=== PATIENT | female | born 1970 | race Caucasian/White ===

== ENCOUNTER 2020-10-28 09:15 | Emergency (ER) | payer OTHER ==
[2020-10-28 09:35] VITALS: BP 113/63; PULSE 72
--- NOTE | 2020-10-28 09:53 | EDM.PDOC ---
ED HPI GENERAL MEDICAL PROBLEM - General Chief Complaint: Head Injury Stated Complaint: FELL AND HIT HEAD Time Seen by Provider: 10/28/20 09:35 Source of Information: Reports: Patient, Old Records, RN History Limitations: Reports: No Limitations - History of Present Illness INITIAL COMMENTS - FREE TEXT/NARRATIVE: 50 yo female not on warfarin fell abruptly on the ice on her way into work about 90 min ago and hit her R occipital area. She has a GORDON, a mildly stiff R post neck and some nausea without vomiting since. 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 No self tx so far. Onset: Today, Sudden Onset Date: 10/28/20 Onset Time: 08:20 Duration: Minutes: Location: Reports: Head Quality: Reports: Ache Severity: Mild Improves with: Reports: None Worsens with: Reports: None Context: Reports: Trauma Associated Symptoms: Reports: Headaches, Nausea/Vomiting (no vomiting) Treatments AUDIO VISUAL COORDINATOR: Reports: Other (see below) (none) Headache Pain Score (Numeric/FACES): 5 - Related Data Allergies Allergy/AdvReac Type Severity Reaction Status Date / Time Penicillins Allergy Rash Verified 10/28/20 09:24 sulfamethoxazole Allergy Mouth Sores Verified 10/28/20 09:24 [From Bactrim] trimethoprim [From Bactrim] Allergy Mouth Sores Verified 10/28/20 09:24 Home Meds: Home Meds Desloratadine/Pseudoephedrine [Clarinex-D 12 Hour] 1 tab PO DAILY 08/25/16 [History] Naproxen Sodium [Aleve] 2 tab PO DAILY 08/25/16 [History] buPROPion [Wellbutrin] 1 tab PO DAILY 08/25/16 [History] Levothyroxine 125 mcg PO ACBREAKFAST 10/28/20 [History] Lisinopril/Hydrochlorothiazide [Lisinopril-Hctz 20-25 mg Tab] 1 tab PO DAILY 10/28/20 [History] estradioL [Estradiol] 0.5 mg PO DAILY 10/28/20 [History] Past Medical History HEENT History: Reports: Allergic Rhinitis, Impaired Vision, Sinusitis Cardiovascular History: Reports: Hypertension Respiratory History: Reports: Asthma 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: Dysfunctional Uterine Bleeding, Polycystic Ovaries Psychiatric History: Reports: Anxiety Endocrine/Metabolic History: Reports: Hypothyroidism, Other (See Below) Other Endocrine/Metabolic History: Lupus Immunologic History: Reports: Other (See Below) Other Immunologic History: Lupus - Infectious Disease History Infectious Disease History: Reports: Chicken Pox - Past Surgical History GI Surgical History: Reports: Cholecystectomy Female Surgical History: Reports: Section, Hysterectomy, Oophorectomy, Other (See Below) Other Female Surgeries/Procedures: right oophorectomy Social & Family History - Tobacco Use Tobacco Use Status *Q: Never Tobacco User Second Hand Smoke Exposure: No - Caffeine Use Caffeine Use: Reports: Coffee, Soda - Alcohol Use Days Per Week of Alcohol Use: 0 - Recreational Drug Use Recreational Drug Use: No ED ROS GENERAL - Review of Systems Review Of Systems: See Below Constitutional: Reports: No Symptoms HEENT: Reports: No Symptoms Respiratory: Reports: No Symptoms Cardiovascular: Reports: No Symptoms GI/Abdominal: Reports: Nausea. Denies: Vomiting : Reports: No Symptoms Musculoskeletal: Reports: Neck Pain (mild stiffness) Skin: Reports: No Symptoms Neurological: Reports: Headache. Denies: Confusion, Dizziness, Numbness, Tingling, Trouble Speaking, Difficulty Walking ED EXAM, HEAD INJURY - Physical Exam Exam: See Below Exam Limited By: No Limitations General Appearance: Alert, WD/WN, No Apparent Distress Head: Normocephalic, Scalp Tenderness (R occiput) Nexus Criteria: No: Posterior, Midline Cervical Tenderness, Evidence of Intoxication, Altered Level of Consciousness, Focal Neurological Deficit, Painful Distraction Injuries Eyes: Bilateral Eye: EOMI, PERRL Ears: Normal External Exam, Normal Canal, Hearing Grossly Normal, Normal TMs Nose: Normal Inspection, No Blood Throat/Mouth: Normal Lips, Normal Voice, No Airway Compromise Neck: Full Range of Motion, Normal Alignment, Normal Inspection, Stiff Neck (minimal, full ROM). No: Non-Tender, Limited Range of Motion Respiratory: Lungs Clear Cardiovascular: Regular Rate, Rhythm Neurologic: threading machine setter II-XII nml As Tested, No Motor/Sensory Deficits, Alert, Normal Mood/Affect, Oriented x 3 Skin: Normal Color, Warm/Dry - Tae Coma Score Best Eye Response (Tae): (4) Open Spontaneously Best Verbal Response ([place]): (5) Oriented Best Motor Response ([place]): (6) Obeys Commands [place] Total: 15 Course - Vital Signs Last Recorded V/S: Last Vital Signs Temp 36.3 C 10/28/20 09:34 Pulse 72 10/28/20 09:34 Resp 16 10/28/20 09:34 BP 113/63 10/28/20 09:34 Pulse Ox 98 10/28/20 09:34 Departure - Departure Time of Disposition: 10:00 Disposition: Home, Self-Care 01 Condition: Good Clinical Impression: Mild concussion Qualifiers: Encounter type: initial encounter Loss of consciousness presence/duration: without LOC Qualified Code(s): S06.0X0A - Concussion without loss of consciousness, initial encounter - Discharge Information *PRESCRIPTION DRUG MONITORING PROGRAM REVIEWED*: Not Applicable *COPY OF PRESCRIPTION DRUG MONITORING REPORT IN PATIENT VIANNEY: Not Applicable Instructions: Concussion, Adult, [id number] Referrals: Faith Garibay CNM [Primary Care Provider] - Additional Instructions: Use Zofran as needed today for nausea control. Acetaminophen for headache. Rest lying down and no exertion today and until all your symptoms resolve. Recheck if worse. Sepsis Event Note (ED) - Evaluation Sepsis Screening Result: No Definite Risk - Focused Exam Vital Signs: Vital Signs Temp Pulse Resp BP Pulse Ox 10/28/20 09:34 36.3 C 72 16 113/63 98
[2020-10-28] MEDS: Ondansetron 4 MG Tab.DIS PO ONE (09:56)
[2020-10-28] MEDS: Acetaminophen 500 MG Tab PO ONE (09:56)
== END 2020-10-28 10:07 | disposition home or self-care (01) ==
LOC: JP.ED 09:15
DX: S06.0X0A Concussion without loss of consciousness, initial encounter (principal); I10 Essential (primary) hypertension; J45.909 Unspecified asthma, uncomplicated; E03.9 Hypothyroidism, unspecified; Z79.899 Other long term (current) drug therapy; Z88.2 Allergy status to sulfonamides; Z88.0 Allergy status to penicillin; W19.XXXA Unspecified fall, initial encounter; Y92.89 Other specified places as the place of occurrence of the external cause; Y99.0 Civilian activity done for income or pay
CPT/HCPCS: 99283; A9270-GY

== ENCOUNTER 2023-03-23 07:32 | Day surgery (SDC) | payer OTHER ==
[~2023-03-23 07:32] MED LIST: Midazolam 1 MG/ML 2 ML SDV ONE; Propofol 200 MG/20 ML SDV ONE; fentaNYL 50 MCG/ML SDV ONE
[2023-03-23] MEDS ORDERED: Lactated Ringers 1,000 ML IV SCH (08:00)
[2023-03-23 09:21] VITALS: PULSE 61
[2023-03-23 09:39] VITALS: BP 111/69
== END 2023-03-23 09:39 | disposition home or self-care (01) ==
LOC: JP.SDS 07:32
PROVIDERS: ATTEND Family Medicine
DX: Z12.11 Encounter for screening for malignant neoplasm of colon (principal); D12.8 Benign neoplasm of rectum; I10 Essential (primary) hypertension; J45.909 Unspecified asthma, uncomplicated; E78.00 Pure hypercholesterolemia, unspecified; Z88.0 Allergy status to penicillin; Z88.1 Allergy status to other antibiotic agents; Z90.49 Acquired absence of other specified parts of digestive tract; Z90.710 Acquired absence of both cervix and uterus
CPT/HCPCS: 45380; 88305; J2250; J2704; J3010; J7120

== ENCOUNTER 2023-05-29 19:14 | Emergency (ER) | payer OTHER ==
[2023-05-29 21:49] VITALS: BP 108/67; PULSE 98
[2023-05-29 22:33] LABS: BASOPHILS PERCENT AUTO 0.2 % (0.1-1.3); EOSINOPHILS ABSOLUTE AUTO 0.03 K/uL (0.00-0.40); EOSINOPHILS PERCENT AUTO 0.3 % (0.0-5.4); HEMATOCRIT 36.2 % (34.3-46.0); HEMOGLOBIN 12.2 g/dL (11.2-15.5); IMMATURE GRAN ABSOLUTE AUTO 0.07 K/uL (0.00-0.23); IMMATURE GRAN PERCENT AUTO 0.6 % (0.0-0.7); LYMPHOCYTES ABSOLUTE AUTO 0.68 K/uL (0.8-3.3); LYMPHOCYTES PERCENT AUTO 5.8 % (11.4-47.7); MEAN CORPUSCULAR HEMOGLOBIN 30.3 pg (31.6-35.5); MEAN CORPUSCULAR HGB CONC 33.7 g/dL (31.6-35.5); MONOCYTES ABSOLUTE AUTO 0.37 K/uL (0.20-0.90); MONOCYTES PERCENT AUTO 3.2 % (3.3-12.6); NEUTROPHILS PERCENT AUTO 89.9 % (40.0-78.1); PLATELET COUNT,PLT 289 K/uL (130-375); RED BLOOD CELL COUNT 4.02 M/uL (3.77-5.24); WHITE BLOOD CELL COUNT,WBC 11.7 K/uL (3.2-11.0)
[2023-05-29 22:45] LABS: BASOPHILS ABSOLUTE AUTO 0.02 K/uL (0.00-0.10)
[2023-05-29 22:51] LABS: A/G RATIO 0.6 (1.2-2.2); ALANINE AMINOTRANSFERASE,ALT 34 U/L (12-78); ALBUMIN 2.8 g/dL (3.4-5.0); ALKALINE PHOSPHATASE 91 U/L (46-116); ASPARTATE AMNIOTRANSFERASE,AST 19 U/L (15-37); BILIRUBIN TOTAL 1.1 mg/dL (0.2-1.0); BLOOD UREA NITROGEN,BUN 24 mg/dL (7-18); CALCIUM 8.8 mg/dL (8.5-10.1); CARBON DIOXIDE,CO2 27 mmol/L (21-32); CHLORIDE,CL 99 mmol/L (100-108); CREATININE 1.4 mg/dL (0.6-1.0); EST CRCL DRUG DOSING (CG) 34.66 mL/min; ESTIMATED GFR 45 mL/min (>60); GLUCOSE RANDOM 94 mg/dL (74-106); POTASSIUM,K 4.1 mmol/L (3.6-5.2); PROTEIN TOTAL,TP 7.7 g/dL (6.4-8.2); SODIUM,NA 132 mmol/L (140-148)
[2023-05-29 22:56] LABS: LACTIC ACID 0.9 mmol/L (0.4-2.0)
[2023-05-29 23:03] LABS: ANION GAP 10.1 mmol/L (5.0-14.0)
== END 2023-05-29 23:41 | disposition home or self-care (01) ==
LOC: JP.ED 19:14
DX: J45.909 Unspecified asthma, uncomplicated (principal); E78.00 Pure hypercholesterolemia, unspecified; I10 Essential (primary) hypertension; Z88.0 Allergy status to penicillin; Z88.1 Allergy status to other antibiotic agents; Z79.899 Other long term (current) drug therapy; Z79.51 Long term (current) use of inhaled steroids; Z86.16 Personal history of COVID-19; Z87.891 Personal history of nicotine dependence
CPT/HCPCS: 36415; 71046; 71046-26; 80053; 83605; 85025; 86140; 99283

== ENCOUNTER 2024-06-23 10:38 | Emergency (ER) | payer OTHER ==
[2024-06-23 12:11] LABS: BASOPHILS PERCENT AUTO 0.3 % (0.1-1.3); EOSINOPHILS ABSOLUTE AUTO 0.04 K/uL (0.00-0.40); EOSINOPHILS PERCENT AUTO 1.4 % (0.0-5.4); HEMATOCRIT 30.3 % (34.3-46.0); HEMOGLOBIN 10.3 g/dL (11.2-15.5); IMMATURE GRAN PERCENT AUTO 0.3 % (0.0-0.7); LYMPHOCYTES ABSOLUTE AUTO 0.91 K/uL (0.8-3.3); LYMPHOCYTES PERCENT AUTO 31.1 % (11.4-47.7); MEAN CORPUSCULAR HEMOGLOBIN 30.6 pg (31.6-35.5); MEAN CORPUSCULAR VOLUME 89.9 fL (81.4-99.0); MONOCYTES ABSOLUTE AUTO 0.53 K/uL (0.20-0.90); MONOCYTES PERCENT AUTO 18.1 % (3.3-12.6); NEUTROPHILS ABSOLUTE AUTO 1.43 K/uL (1.0-7.6); NEUTROPHILS PERCENT AUTO 48.8 % (40.0-78.1); PLATELET COUNT,PLT 189 K/uL (130-375); RED BLOOD CELL COUNT 3.37 M/uL (3.77-5.24); WHITE BLOOD CELL COUNT,WBC 2.9 K/uL (3.2-11.0)
[2024-06-23 12:14] LABS: BASOPHILS ABSOLUTE AUTO 0.01 K/uL (0.00-0.10); IMMATURE GRAN ABSOLUTE AUTO 0.01 K/uL (0.00-0.23)
[2024-06-23 12:40] LABS: A/G RATIO 0.6 (1.2-2.2); ALANINE AMINOTRANSFERASE,ALT 29 U/L (12-78); ALKALINE PHOSPHATASE 84 U/L (46-116); ANION GAP 12.7 mmol/L (5.0-14.0); ASPARTATE AMNIOTRANSFERASE,AST 21 U/L (15-37); BILIRUBIN TOTAL 0.4 mg/dL (0.2-1.0); BLOOD UREA NITROGEN,BUN 49 mg/dL (7-18); CALCIUM 9.6 mg/dL (8.5-10.1); CARBON DIOXIDE,CO2 25 mmol/L (21-32); CHLORIDE,CL 104 mmol/L (100-108); CREATININE 1.6 mg/dL (0.6-1.0); EST CRCL DRUG DOSING (CG) 29.98 mL/min; ESTIMATED GFR 38 mL/min (>60); GLUCOSE RANDOM 96 mg/dL (74-106); POTASSIUM,K 4.7 mmol/L (3.6-5.2); PROTEIN TOTAL,TP 7.7 g/dL (6.4-8.2); SODIUM,NA 137 mmol/L (140-148); T4 FREE 1.42 ng/dL (0.76-1.46); TSH ULTRASENSITIVE 0.014 uIU/mL (0.358-3.740)
[2024-06-23] MEDS: Sodium Chloride 0.9% 1,000 ML IV ONE (12:56)
[2024-06-23] MEDS: Sodium Chloride 0.9% 10 ML Syringe FLUSH PRN (12:57)
[2024-06-23 13:05] LABS: APPEARANCE,URINE CLEAR (CLEAR); BILIRUBIN,URINE NEGATIVE (NEGATIVE); COLOR,URINE YELLOW (YELLOW); GLUCOSE,URINE NEGATIVE (NEGATIVE); KETONES,URINE NEGATIVE (NEGATIVE); LEUKOCYTE ESTERASE,URINE NEGATIVE (NEGATIVE); NITRITE,URINE NEGATIVE (NEGATIVE); OCCULT BLOOD,URINE NEGATIVE (NEGATIVE); PH,URINE 5.5 (5.0-8.0); PROTEIN,URINE NEGATIVE (NEGATIVE); UROBILINOGEN,URINE 0.2 EU/dL (0.2-1.0)
[2024-06-23 13:06] LABS: LYME AB IgG Positive (Negative); LYME AB IgM Equivocal (Negative)
[2024-06-23 13:13] LABS: AMORPHOUS SEDIMENT,URINE NOT SEEN; BACTERIA,URINE NOT SEEN; EPITHELIAL CELLS,URINE FEW; MUCUS,URINE NOT SEEN; RBC,URINE 0-5 (0-5); WBC,URINE 0-5 (0-5)
[2024-06-23 13:50] VITALS: BP 96/53; PULSE 70
== END 2024-06-23 13:51 | disposition home or self-care (01) ==
LOC: JP.ED 10:38
DX: E86.0 Dehydration (principal); I12.9 Hypertensive chronic kidney disease with stage 1 through stage 4 chronic kidney disease, or unspecified chronic kidney disease; N18.31 Chronic kidney disease, stage 3a; A69.20 Lyme disease, unspecified; D63.1 Anemia in chronic kidney disease; D72.819 Decreased white blood cell count, unspecified; E03.9 Hypothyroidism, unspecified; J45.909 Unspecified asthma, uncomplicated; Z79.899 Other long term (current) drug therapy; Z86.16 Personal history of COVID-19; Z88.0 Allergy status to penicillin; Z88.2 Allergy status to sulfonamides; Z88.8 Allergy status to other drugs, medicaments and biological substances
CPT/HCPCS: 36415; 71045; 80053; 81001; 84439; 84443; 84484; 85025; 85379; 86617; 86618; 87635; 93005; 96360; 99284; J3490; J7030; U0002

== ENCOUNTER 2024-11-06 08:43 | Emergency (ER) | payer OTHER ==
[2024-11-06 09:39] VITALS: BP 117/73; PULSE 104
[2024-11-06 10:18] LABS: BASE EXCESS VENOUS 5.3 mm/L; BASOPHILS PERCENT AUTO 0.4 % (0.1-1.3); CARBOXYHEMOGLOBIN 1.9 % (0.0-1.6); EOSINOPHILS PERCENT AUTO 0.4 % (0.0-5.4); HEMATOCRIT 33.6 % (34.3-46.0); HEMOGLOBIN 11.6 g/dL (11.2-15.5); IMMATURE GRAN PERCENT AUTO 0.7 % (0.0-0.7); LYMPHOCYTES ABSOLUTE AUTO 0.54 K/uL (0.8-3.3); MEAN CORPUSCULAR HEMOGLOBIN 30.1 pg (31.6-35.5); MEAN CORPUSCULAR HGB CONC 34.5 g/dL (31.6-35.5); MEAN CORPUSCULAR VOLUME 87.3 fL (81.4-99.0); METHEMOGLOBIN 0.6 %; MONOCYTES ABSOLUTE AUTO 0.44 K/uL (0.20-0.90); MONOCYTES PERCENT AUTO 16.3 % (3.3-12.6); NEUTROPHILS ABSOLUTE AUTO 1.68 K/uL (1.0-7.6); NEUTROPHILS PERCENT AUTO 62.2 % (40.0-78.1); O2 SATURATION VENOUS 46.7; OXYHEMOGLOBIN 45.5 %; PCO2 VENOUS 40.4 mm/Hg; PH,VENOUS 7.469 (7.350-7.450); PLATELET COUNT,PLT 176 K/uL (130-375); RED BLOOD CELL COUNT 3.85 M/uL (3.77-5.24); TOTAL HEMOGLOBIN 11.9 g/dL (12.0-16.0); WHITE BLOOD CELL COUNT,WBC 2.7 K/uL (3.2-11.0)
[2024-11-06 10:21] LABS: BASOPHILS ABSOLUTE AUTO 0.01 K/uL (0.00-0.10); EOSINOPHILS ABSOLUTE AUTO 0.01 K/uL (0.00-0.40); IMMATURE GRAN ABSOLUTE AUTO 0.02 K/uL (0.00-0.23); PO2 VENOUS 26.5 mm/Hg
[2024-11-06 10:47] LABS: A/G RATIO 0.6 (1.2-2.2); ALANINE AMINOTRANSFERASE,ALT 41 U/L (12-78); ALBUMIN 2.8 g/dL (3.4-5.0); ALKALINE PHOSPHATASE 96 U/L (46-116); ANION GAP 10.2 mmol/L (5.0-14.0); ASPARTATE AMNIOTRANSFERASE,AST 22 U/L (15-37); BILIRUBIN TOTAL 0.8 mg/dL (0.2-1.0); BLOOD UREA NITROGEN,BUN 22 mg/dL (7-18); CALCIUM 9.5 mg/dL (8.5-10.1); CARBON DIOXIDE,CO2 30 mmol/L (21-32); CHLORIDE,CL 102 mmol/L (100-108); CREATININE 1.2 mg/dL (0.6-1.0); ESTIMATED GFR 53 mL/min (>60); GLUCOSE RANDOM 112 mg/dL (74-106); POTASSIUM,K 4.2 mmol/L (3.6-5.2); PROTEIN TOTAL,TP 7.5 g/dL (6.4-8.2); SODIUM,NA 138 mmol/L (140-148)
[2024-11-06 11:03] LABS: CORONAVIRUS COVID-19 NAA NEGATIVE (NEGATIVE); INFLUENZA A NAA NEGATIVE (NEGATIVE); INFLUENZA B NAA NEGATIVE (NEGATIVE); RESPIRATORY SYNCYTIAL VIR NAA NEGATIVE (NEGATIVE)
== END 2024-11-06 12:22 | disposition home or self-care (01) ==
LOC: JP.ED 08:43
DX: R07.89 Other chest pain (principal); I10 Essential (primary) hypertension; E78.00 Pure hypercholesterolemia, unspecified; J45.909 Unspecified asthma, uncomplicated; E03.9 Hypothyroidism, unspecified; Z86.16 Personal history of COVID-19; Z90.710 Acquired absence of both cervix and uterus; Z79.82 Long term (current) use of aspirin; Z79.899 Other long term (current) drug therapy; Z88.0 Allergy status to penicillin; Z88.2 Allergy status to sulfonamides
CPT/HCPCS: 0241U; 36415; 70486; 71045; 80053; 82803; 83605; 84145; 84484; 85025; 86140; 93005; 99285

== ENCOUNTER 2025-08-12 20:10 | Emergency (ER) | payer OTHER ==
[2025-08-12 20:56] LABS: BASOPHILS PERCENT AUTO 0.4 % (0.1-1.3); EOSINOPHILS ABSOLUTE AUTO 0.07 K/uL (0.00-0.40); EOSINOPHILS PERCENT AUTO 1.4 % (0.0-5.4); IMMATURE GRAN PERCENT AUTO 0.2 % (0.0-0.7); LYMPHOCYTES ABSOLUTE AUTO 2.04 K/uL (0.8-3.3); LYMPHOCYTES PERCENT AUTO 42.1 % (11.4-47.7); MONOCYTES ABSOLUTE AUTO 0.62 K/uL (0.20-0.90); MONOCYTES PERCENT AUTO 12.8 % (3.3-12.6); NEUTROPHILS ABSOLUTE AUTO 2.09 K/uL (1.0-7.6); NEUTROPHILS PERCENT AUTO 43.1 % (40.0-78.1); PLATELET COUNT,PLT 173 K/uL (130-375); RED BLOOD CELL COUNT 4.13 M/uL (3.77-5.24); WHITE BLOOD CELL COUNT,WBC 4.9 K/uL (3.2-11.0)
[2025-08-12 20:57] LABS: BASOPHILS ABSOLUTE AUTO 0.02 K/uL (0.00-0.10); IMMATURE GRAN ABSOLUTE AUTO 0.01 K/uL (0.00-0.23)
[2025-08-12] MEDS: Ketorolac 15 MG/ML SDV IVPUSH ONE (21:02)
[2025-08-12] MEDS: Ondansetron 4 MG/2 ML SDV IVPUSH ONE (21:02)
[2025-08-12 21:20] LABS: A/G RATIO 0.7 (1.2-2.2); ALANINE AMINOTRANSFERASE,ALT 35 U/L (12-78); ASPARTATE AMNIOTRANSFERASE,AST 25 U/L (15-37); BILIRUBIN TOTAL 0.6 mg/dL (0.2-1.0); BLOOD UREA NITROGEN,BUN 36 mg/dL (7-18); CARBON DIOXIDE,CO2 35 mmol/L (21-32); CHLORIDE,CL 96 mmol/L (100-108); CREATININE 1.7 mg/dL (0.6-1.0); EST CRCL DRUG DOSING (CG) 27.88 mL/min; ESTIMATED GFR 35 mL/min (>60); GLUCOSE RANDOM 120 mg/dL (74-106); PROTEIN TOTAL,TP 7.5 g/dL (6.4-8.2); SODIUM,NA 136 mmol/L (140-148)
[2025-08-12 21:22] LABS: POTASSIUM,K 2.4 mmol/L (3.6-5.2)
[2025-08-12] MEDS: Potassium Chloride 10% 20 MEQ/15 ML Soln 15 ML UD Cup PO ONE (21:32)
[2025-08-12] MEDS: Potassium Chloride 20 MEQ in Premix Bag 1 BAG IV ONE (22:21)
[2025-08-12 22:31] LABS: APPEARANCE,URINE CLEAR (CLEAR); GLUCOSE,URINE NEGATIVE (NEGATIVE); OCCULT BLOOD,URINE NEGATIVE (NEGATIVE)
[2025-08-13 00:48] LABS: BLOOD UREA NITROGEN,BUN 34.0 mg/dL (7-18); CARBON DIOXIDE,CO2 33.0 mmol/L (21-32); CHLORIDE,CL 102.0 mmol/L (100-108); CREATININE 1.5 mg/dL (0.6-1.0); EST CRCL DRUG DOSING (CG) 31.6 mL/min; ESTIMATED GFR 41.0 mL/min (>60); GLUCOSE RANDOM 97.0 mg/dL (74-106); POTASSIUM,K 3.4 mmol/L (3.6-5.2); SODIUM,NA 139.0 mmol/L (140-148)
[2025-08-13 01:35] VITALS: BP 98/62; PULSE 65
== END 2025-08-13 01:41 | disposition home or self-care (01) ==
LOC: JP.ED 20:10
DX: I88.0 Nonspecific mesenteric lymphadenitis (principal); E87.6 Hypokalemia; I10 Essential (primary) hypertension; J45.909 Unspecified asthma, uncomplicated; E03.9 Hypothyroidism, unspecified; Z90.710 Acquired absence of both cervix and uterus; Z90.49 Acquired absence of other specified parts of digestive tract; Z88.0 Allergy status to penicillin; Z88.2 Allergy status to sulfonamides; Z88.1 Allergy status to other antibiotic agents; Z79.82 Long term (current) use of aspirin; Z79.899 Other long term (current) drug therapy; Z79.890 Hormone replacement therapy; Z87.891 Personal history of nicotine dependence
CPT/HCPCS: 36415; 74176; 80048; 80053; 81003; 85025; 96361; 96365; 96366; 96375; 99284; A9270; J1885; J2405; J3480; J7030